=== PATIENT | male | born 1995 | race Caucasian/White ===

== ENCOUNTER 2020-09-27 18:14 | Emergency (ER) | payer SELFPAY ==
[~2020-09-27] VITALS: Ht 172.7 cm; Wt 62.6 kg
[2020-09-27 18:32] VITALS: Ht 172.7 cm; Wt 62.6 kg
[2020-09-27] MEDS ORDERED: LOPERAMIDE HCL2 M1 PO (19:38)
[2020-09-27] MEDS ORDERED: CLONIDINE HCL0.1 M1 PO (19:38)
[2020-09-27] MEDS ORDERED: ZOF4 PO (19:38)
[2020-09-27] MEDS ORDERED: ATIVAN1 MG PO (19:38)
[2020-09-27 20:37] VITALS: BP 134/74
== END 2020-09-27 20:36 | disposition home or self-care (01) ==
LOC: ED 18:14
DX: F15.10 Other stimulant abuse, uncomplicated (principal); F13.239 Sedative, hypnotic or anxiolytic dependence with withdrawal, unspecified; F11.10 Opioid abuse, uncomplicated